=== PATIENT | male | born 1975 | race African-American/Black ===

== ENCOUNTER 2021-03-14 13:31 | Emergency (ER) | payer OTHER ==
[~2021-03-14] VITALS: Ht 167.6 cm; Wt 112.0 kg
[2021-03-14] MEDS ORDERED: HYDROCODONE/ACETAMINOPHEN 5/325MG TABLET PO ONE (13:45)
[2021-03-14] MEDS ORDERED: NAPR-681 MT (17:17)
[2021-03-14] MEDS ORDERED: HYDR-4001 MT (17:17)
[2021-03-14 17:23] VITALS: BP 187/114
== END 2021-03-14 17:27 | disposition home or self-care (01) ==
LOC: ER 13:31
DX: M25.511 Pain in right shoulder (principal); X58.XXXA Exposure to other specified factors, initial encounter; Y93.67 Activity, basketball; Y92.9 Unspecified place or not applicable
CPT/HCPCS: 73030; 99283; A4565